=== PATIENT | female | born 1965 | race Caucasian/White ===

== ENCOUNTER 2017-02-08 20:15 | Emergency (ER) | payer OTHER ==
[~2017-02-08] VITALS: Ht 160 cm; Wt 62.7 kg
[~2017-02-08 20:15] MED LIST: ALBU8I INH; ALPR.25 PO; AMLO5 PO; ASPI81 PO; CEFU1TAB43 PO; DILT60TA PO; FLOV110A INH; PRED10 PO; TEMA15 PO; Z.0.OXYGENDME NC
[2017-02-08 20:18] VITALS: BP 171/75; PULSE 78; RESP 18; TEMP 97.8; O2SAT 92
--- NOTE | 2017-02-08 20:30 | PD ---
HPI Chief Complaint: ENT Complaint Time Seen by Provider: 20:30 Travel History International Travel<30 days: No Contact w/Intl Traveler<30days: No Traveled to known affect area: No History of Present Illness HPI 51 YO F presents to the ED for evaluation of 7 out of 10 left ear pain. Gradual onset since this morning. Patient endorses left-sided nasal congestion that has developed during the course of the day. She denies headaches, fevers, rhinorrhea, sore throat, cough, nausea or vomiting. She treated at home with a 400 mg ibuprofen and by rubbing Vicks VapoRub around her ear with no improvement in symptoms. NKDA. PFSH Past Medical History Arthritis: Yes (Severe in right hand and left knee) Asthma: Yes Autoimmune Disease: No Anxiety: Yes (Occurs with stress, does not take any medication) Depression: Yes Heart Rhythm Problems: No Cancer: No Cardiovascular Problems: Yes (HX of A Fib, HTN) High Cholesterol: Yes Chest Pain: Yes (New onset r/t current issue) Congestive Heart Failure: No COPD: Yes Cerebrovascular Accident: Yes (2012, caused temporary left sided weakness) Coronary Artery Disease: No Diabetes: No Diminished Hearing: No Endocrine: No GERD: No Genitourinary: No Hiatal Hernia: No Hypertension: Yes Immune Disorder: No Kidney Stones: No Musculoskeletal: Yes Neurologic: Yes Psychiatric: Yes Reproductive: No Respiratory: Yes (COPD, asthma) Migraines: No Pneumonia: Yes Renal Failure: No Seizures: No Sickle Cell Disease: No Sleep Apnea: No (Patient does not know) Thyroid Disease: No Ulcer: No Menopausal: Yes : 4 Para: 4 Past Surgical History Abdominal Surgery: No AICD: No Arteriovenous Shunt: No Body Medical Devices: Plate and screws in left tibia Cardiac Surgery: No Ear Surgery: No Endocrine Surgery: No Eye Surgery: No Genitourinary Surgery: No Gynecologic Surgery: Yes (Laser for cervial dysplasia) Insulin Pump: No Joint Replacement: No Oral Surgery: No Pacemaker: No Thoracic Surgery: Yes (Lobe of left lung removed d/t emphysema) Other Surgery: Yes (right partial lobectomy) Social History Alcohol Use: Yes (OCCASIONAL MALT LIQUOR) Tobacco Use: No Substance Use: No Allergies-Medications (Allergen,Severity, Reaction): Coded Allergies: No Known Allergies (Verified , 02/08/17) Reported Meds & Prescriptions Reported Meds & Active Scripts Active Amoxicillin 500 Mg Cap 500 Mg PO BID 7 Days Reported Nicoderm CQ Patch (Nicotine) 14 Mg/24 Hr Patch 14 Mg T-DERMAL DAILY Nitrostat SL (Nitroglycerin) 0.4 Mg Subl 0.4 Mg SL DIRECTED PRN 1 tablet under the tongue as needed for chest pain. Repeat every 5 minutes for a total of 3 DOSES or call 911 if NO relief. Buspirone (Buspirone HCl) 7.5 Mg Tab 7.5 Mg PO BID Proair Hfa 8.5 GM Inh (Albuterol Sulfate) 90 Mcg/Act Aer 1 Puff INH Q4H PRN 108 mcg/actuation Lipitor (Atorvastatin Calcium) 80 Mg Tab 80 Mg PO HS Losartan (Losartan Potassium) 50 Mg Tab 50 Mg PO DAILY Bupropion HCl 75 Mg Tab 75 Mg PO BID Amlodipine (Amlodipine Besylate) 5 Mg Tab 5 Mg PO DAILY Review of Systems Except as stated in HPI: all other systems reviewed are Neg Physical Exam Narrative GENERAL: Well-nourished, well-developed nontoxic appearing white female in no acute distress. SKIN: Warm and dry. HEAD: Normocephalic. Atraumatic. EYES: No scleral icterus. No injection or drainage. PERRLA. EOMI. ENT: Right tympanic membrane pearly yates. Left tympanic membrane erythematous. No loss of landmarks. Nasal mucosa is moist. Oropharynx without erythema, edema or exudate. NECK: Supple, trachea midline. No JVD or lymphadenopathy. CARDIOVASCULAR: Regular rate and rhythm without murmurs, gallops, or rubs. RESPIRATORY: Breath sounds clear and equal bilaterally. No accessory muscle use. GASTROINTESTINAL: Abdomen soft, non-tender, nondistended. + Bowel sounds MUSCULOSKELETAL: No cyanosis, or edema. Moves all extremities spontaneously. BACK: Nontender without obvious deformity. No CVA tenderness. Data Data Last Documented VS Vital Signs Date Time Temp Pulse Resp B/P (MAP) Pulse Ox O2 Delivery O2 Flow Rate FiO2 02/08/17 20:18 97.8 78 18 171/75 (107) 92 Orders Orders Amoxicillin (Trimox) (02/08/17 20:45) Tramadol (Ultram) (02/08/17 20:45) MDM Medical Decision Making Medical Screen Exam Complete: Yes Emergency Medical Condition: Yes Differential Diagnosis Otitis externa versus otitis media versus foreign body versus other Narrative Course 51 YO F presents to the ED for evaluation of 10 left ear pain. Gradual onset since this morning. Patient endorses left-sided nasal congestion that has developed during the course of the day. She denies headaches, fevers, rhinorrhea, sore throat, cough, nausea or vomiting. Vitals reviewed. Physical exam consistent with left otitis media. Patient is prescribed amoxicillin 500 mg twice a day 7 days. First dose administered in the ED. Patient was also administered a single dose of tramadol. She is encouraged to take the antibiotics as prescribed, use OTC medications as needed for pain, follow-up with the primary care or ENT specialist. The patient is agreeable to the care plan. She is stable and discharged home. Diagnosis Primary Impression: Otitis media Qualified Codes: H65.192 - Other acute nonsuppurative otitis media, left ear Referrals: Ear / Nose / Throat Specialist Patient Instructions: Ear Infection (ED), General Instructions Additional Instructions: Rest, hydrate. Take all antibiotics as prescribed, even if symptoms resolve. Take 600 mg ibuprofen up to 3 times a day as needed for continued pain. Follow-up with rn oncology research. Return to the ED for any urgent or emergent medical condition. Med/Other Pt SpecificInfo: Prescription(s) given Scripts Amoxicillin (Amoxicillin) 500 Mg Cap 500 MG PO BID for Infection for 7 Days, CAP 0 Refills Prov: Gopal Schneider MD 02/08/17 Disposition: 01 DISCHARGE HOME Condition: Stable Ryann Mcmanus Feb 08, 2017 20:30
[2017-02-08] MEDS ORDERED: LOSA25TA PO (20:31)
[2017-02-08] MEDS ORDERED: NITR0.4S SL (20:33)
[2017-02-08] MEDS ORDERED: AMLO5TAB2 PO (20:33)
[2017-02-08] MEDS ORDERED: NICO14DI4 T-DERMAL (20:33)
[2017-02-08] MEDS ORDERED: BUPR75TA PO (20:33)
[2017-02-08] MEDS ORDERED: LOSA50TA PO (20:33)
[2017-02-08] MEDS ORDERED: ALBUAER3 INH (20:33)
[2017-02-08] MEDS ORDERED: BUSP1TAB PO (20:33)
[2017-02-08] MEDS ORDERED: LIPI80TA PO (20:33)
[2017-02-08] MEDS ORDERED: AMOX500C PO (20:39)
[2017-02-08] MEDS ORDERED: AMOXICILLIN (TRIHYDRATE) 500 MG CAP PO ONE (20:45)
[2017-02-08] MEDS ORDERED: traMADol HCL 50 MG TAB PO ONE (20:45)
== END 2017-02-08 21:13 | disposition home or self-care (01) ==
LOC: PHEFT 20:15
DX: H65.192 Other acute nonsuppurative otitis media, left ear (principal); R09.81 Nasal congestion; I10 Essential (primary) hypertension; E78.00 Pure hypercholesterolemia, unspecified; Z87.39 Personal history of other diseases of the musculoskeletal system and connective tissue; Z87.09 Personal history of other diseases of the respiratory system; Z86.59 Personal history of other mental and behavioral disorders; Z86.79 Personal history of other diseases of the circulatory system; Z86.69 Personal history of other diseases of the nervous system and sense organs
CPT/HCPCS: 99283

== ENCOUNTER 2018-03-03 15:19 | Inpatient (IN) ==
[2018-03-03] MEDS ORDERED: MethylPREDNISolone Sod Succinate Inj 125 MG/2 ML Vial IV.PUSH ONE (15:34)
--- NOTE | 2018-03-03 15:43 | ED ---
HPI General Chief Complaint: Shortness of Breath/Dyspnea Stated Complaint: SOB History of Present Illness The patient was seen and examined in the presence of the nurse. She complains of shortness of breath. She has COPD and still smokes. She uses oxygen as needed at home. She has a dry cough. She feels like there is a pressure in her weight on her chest. Symptom severity is moderate. No alleviating factors. Symptoms exacerbated by her continued smoking. Duration 2 days Related Data Home Medications Medication Instructions Recorded Confirmed amlodipine 5 mg PO DAILY 03/03/18 03/03/18 buspirone 7.5 mg PO BID 03/03/18 03/03/18 doxycycline hyclate 1 cap PO Q12HR 03/03/18 03/03/18 losartan 1 tab PO DAILY 03/03/18 03/03/18 Allergies Allergy/AdvReac Type Severity Reaction Status Date / Time No Known Allergies Allergy Unverified 03/03/18 15:42 Review of Systems ROS: all other systems reviewed are negative [facility] Medical History Medical History Asthma (Acute) Atrial fibrillation (Acute) COPD (chronic obstructive pulmonary disease) (Acute) Cervical dysplasia (Acute) Fracture of tibia or fibula following insertion of orthopedic implant, joint prosthesis, or bone plate, left leg (Acute) Social History Social History Substance History: No History of Abuse Second Hand Smoke Exposure: No Smoking Status: Current every day smoker Tobacco Type: Cigarettes How Often Do You Have a Drink Containing Alcohol: 2 to 4 times a month Recent Travel in [facility] within the Last 8 Weeks: No Recent Out of Country Travel within the Last 8 Weeks: No Exam Narrative Exam Narrative: GENERAL: Well-nourished, well-developed patient with dyspnea . SKIN: Focused skin assessment reveals no rash and nodules. Skin is Warm and dry. HEAD: Atraumatic. Normocephalic. EYES: Pupils equal and round. No scleral icterus. No injection or drainage. ENT: No nasal bleeding or discharge. Mucous membranes pink and moist. NECK: Trachea midline. No JVD. CARDIOVASCULAR: Regular rate and rhythm. No murmur appreciated. RESPIRATORY: No accessory muscle use. Clear to auscultation. Breath sounds equal bilaterally. GASTROINTESTINAL: Abdomen soft, non-tender, nondistended. Hepatic and splenic margins not palpable. MUSCULOSKELETAL: No obvious deformities. No clubbing. No cyanosis. No edema. NEUROLOGICAL: Awake and alert. No obvious cranial nerve deficits. Motor grossly within normal limits. Normal speech. PSYCHIATRIC: Appropriate mood and affect; insight and judgment poor . Course Initial Documented Vital Signs Temperature 97.8 F 03/03/18 15:19 Pulse Rate 76 03/03/18 15:19 Respiratory Rate 24 03/03/18 15:19 Blood Pressure 179/74 H 03/03/18 15:19 Pulse Oximetry 84 L 03/03/18 15:19 Last Documented Vital Signs Temperature 97.8 F 03/03/18 15:19 Pulse Rate 93 H 03/03/18 16:07 Respiratory Rate 20 03/03/18 16:07 Blood Pressure 160/68 H 03/03/18 16:07 Pulse Oximetry 98 03/03/18 16:07 Critical Care Time Critical Care Time: Yes Total Critical Care Time: 38 Attestation: Aggregate critical care time was 38 minutes. Time to perform other separately billable procedures was not included in the critical care time. My time did not include minutes spent treating any other patients simultaneously or on activities that did not directly contribute to the patient's treatment. The services I provided to this patient were to treat and/or prevent clinically significant deterioration that could result in: Cardiopulmonary arrest, hypoxemic brain injury, aspiration I provided critical care services requiring my management, as noted below: Chart data review, documentation time, medication orders and management, vital sign assessments/reviewing monitor data, ordering and reviewing lab tests, ordering and interpreting/reviewing x-rays and diagnostic studies, care of the patient and discussion of the patient with the admitting physicians. Medical Decision Making MDM Narrative Medical decision making narrative: Patient has acute hypoxic respiratory failure. Saturations are 86% on room air on arrival. I gave her a series. She is also having chest heaviness which we are evaluating. After resuscitation measures she is breathing better. Her saturations are now 94-95 % on 4 L nasal cannula. Patient wears oxygen at home as needed Chest x-ray shows no pneumonia. Lab studies are reviewed. Cardiac enzymes are negative. EKG does not show acute changes. Patient will be telemetry hospitalization for both her respiratory failure and COPD as well as to evaluation of her chest pain. I placed a call to the hospitalist to discuss. Medical Screen Exam Complete: Yes Emergency Medical Condition: Yes Medical Records Medical records reviewed: Yes I reviewed the patient's medical records. Lab Data Lab results reviewed: Yes I reviewed the patient's lab results. Lab results narrative: Cardiac enzymes are normal. Metabolic studies have some mild irregularities Result diagrams: 03/03/18 15:35 03/03/18 15:35 Lab Results 03/03/18 03/03/18 Range/Units 15:35 15:35 CBC w Diff Auto diff final WBC 12.8 H (4.0-11.0) th/mm3 RBC 5.06 (4.00-5.30) mil/mm3 Hgb 15.1 (11.6-15.3) gm/dL Hct 45.6 (35.0-46.0) % MCV 90.2 (80.0-100.0) fL MCH 29.8 (27.0-34.0) pg MCHC 33.0 (32.0-36.0) % RDW 14.7 (11.6-17.2) % Plt Count 422 (150-450) th/mm3 MPV 8.3 (7.0-11.0) fL Neut % (Auto) 79.6 H (16.0-70.0) % Lymph % (Auto) 12.4 (9.0-44.0) % Lyman % (Auto) 6.9 (0.0-8.0) % Eos % (Auto) 0.9 (0.0-4.0) % Baso % (Auto) 0.2 (0.0-2.0) % Neut # (Auto) 10.2 H (1.8-7.7) th/mm3 Lymph # (Auto) 1.6 (1.0-4.8) th/mm3 Lyman # (Auto) 0.9 (0.0-0.9) th/mm3 Eos # (Auto) 0.1 (0.0-0.4) th/mm3 Baso # (Auto) 0.0 (0.0-0.2) th/mm3 WBC Differential . Differential Comment . Sodium 142 (136-145) meq/L Potassium 4.1 (3.5-5.1) meq/L Chloride 99 (98-107) meq/L Carbon Dioxide 38.4 H (21.0-32.0) meq/L Anion Gap 5 (5-15) meq/L BUN 12 (7-18) mg/dL Creatinine 0.42 L (0.50-1.00) mg/dL Estimated GFR Greater than 89 (>89) mL/min Random Glucose 121 H (74-106) mg/dL Calcium 8.8 (8.5-10.1) mg/dL Total Bilirubin 0.3 (0.2-1.0) mg/dL AST 14 L (15-37) U/L ALT 25 (10-53) U/L Alkaline Phosphatase 93 (45-117) U/L Total Creatine Kinase 62 (26-192) U/L Troponin I Less than 0.02 L (0.02-0.05) ng/mL Total Protein 7.3 (6.4-8.2) g/dL Albumin 3.5 (3.4-5.0) g/dL Imaging Data Attestation: I personally reviewed and interpreted this imaging study as follows : My impression: Chest x-ray does not show any consolidation or pneumonia Radiologist's impression: Chest X-Ray 03/03/18 15:34 CONCLUSION: 1. No acute pneumonia or significant interval change. ECG Data EKG Prior to Arrival: No Attestation: I personally reviewed and interpreted this ECG as follows: Prior ECG tracings: not available for review Interpretation: Patient is in a sinus rhythm. There are no acute ST elevations. [place] interval and rate are normal Discharge Plan Discharge Disposition Patient Disposition: 30 Still Patient Discharge Details Diagnosis: Acute respiratory failure with hypoxia, Chest pain in adult Physicians Team ED Provider: Miguel Quezada Primary Care Provider: UNKNOWN, Rxs /Orders / Referrals /Forms Prescriptions: No Action losartan 50 mg Tablet 1 tab PO DAILY RF: 0 doxycycline hyclate 100 mg Capsule 1 cap PO Q12HR RF: 0 amlodipine 5 mg Tablet 5 mg PO DAILY RF: 0 buspirone 7.5 mg Tablet 7.5 mg PO BID RF: 0 Discharge Interventions Interventions: Vital Signs Last Done: 03/03/18 16:07 Status ED Status: With Nurse
[2018-03-03 15:54] LABS: Baso % (Auto) 0.2 % (0.0-2.0); Eos # (Auto) 0.1 th/mm3 (0.0-0.4); Eos % (Auto) 0.9 % (0.0-4.0); Hematocrit 45.6 % (35.0-46.0); Hemoglobin 15.1 gm/dL (11.6-15.3); Lymph # (Auto) 1.6 th/mm3 (1.0-4.8); Lymph % (Auto) 12.4 % (9.0-44.0); Mean Corpuscular Hemoglobin 29.8 pg (27.0-34.0); Mean Corpuscular Volume 90.2 fL (80.0-100.0); Mean Platelet Volume 8.3 fL (7.0-11.0); Mono # (Auto) 0.9 th/mm3 (0.0-0.9); Mono % (Auto) 6.9 % (0.0-8.0); Neut # (Auto) 10.2 th/mm3 (1.8-7.7); Neut % (Auto) 79.6 % (16.0-70.0); Platelet Count 422 th/mm3 (150-450); Red Blood Count 5.06 mil/mm3 (4.00-5.30); Red Cell Distribution Width 14.7 % (11.6-17.2); White Blood Count 12.8 th/mm3 (4.0-11.0)
[2018-03-03 16:01] LABS: Chloride 99 meq/L (98-107); Potassium 4.1 meq/L (3.5-5.1); Sodium 142 meq/L (136-145)
[2018-03-03 16:04] LABS: Calcium 8.8 mg/dL (8.5-10.1)
[2018-03-03 16:05] LABS: Albumin 3.5 g/dL (3.4-5.0); Anion Gap 5 meq/L (5-15); Blood Urea Nitrogen 12 mg/dL (7-18); Carbon Dioxide 38.4 meq/L (21.0-32.0); Glucose,Random 121 mg/dL (74-106)
--- NOTE | 2018-03-03 16:05 | XR ---
EXAM DATE: 03/03/2018 3:34 PM EDT AGE/SEX: 52 years / Female INDICATIONS: Shortness of breath, difficulty breathing for 24 hours CLINICAL DATA: This is the patient's initial encounter. Patient reports that signs and symptoms have been present for 1 day and indicates a pain score of 0/10. MEDICAL/SURGICAL HISTORY: . Chronic obstructive pulmonary disease. Hypertension. asthma . Lef t lobectomy COMPARISON: [facility], XR CHEST PA AND LAT, 03/02/2017. . FINDINGS: No new focal pleural or parenchymal opacities. Persistent biapical scarring. The cardiomediastinal co ntours are unremarkable. Osseous structures are intact. CONCLUSION: 1. No acute pneumonia or significant interval change. Electronically signed by: Leandro Alcala MD 03/03/2018 4:03 PM EDT
[2018-03-03 16:08] LABS: Alanine Aminotransferase 25 U/L (10-53); Aspartate Aminotransferase 14 U/L (15-37); Glomerular Filtration Rate Greater Than 89 mL/min (>89)
[2018-03-03 16:10] LABS: Total Protein 7.3 g/dL (6.4-8.2)
[2018-03-03 16:11] LABS: Alkaline Phosphatase 93 U/L (45-117)
[2018-03-03 16:14] LABS: Creatine Kinase 62 U/L (26-192)
[2018-03-03] MEDS ORDERED: Bisacodyl 10 MG Supp RECTAL PRN (18:12)
[2018-03-03 19:23] LABS: Bilirubin,Urine Negative (Negative); Clarity,Urine Clear (Clear); Color,Urine Yellow (Yellw/Straw); Glucose,Urine (UA) Negative (Negative); Leukocyte Esterase,Urine Negative (Negative); Nitrite,Urine Negative (Negative); PH,Urine 6.5 (5.0-8.5); Urobilinogen,Urine 0.2 mg/dL (Less than 2)
[2018-03-03 19:35] LABS: Squamous Epithelial Cell,Urine 0-5 /hpf (0-5)
[2018-03-03] MEDS: Senna/Docusate Sodium 8.6/50 MG Tablet PO SCH (20:51)
[2018-03-03] MEDS: predniSONE 20 MG Tablet PO SCH (20:51)
[2018-03-03] MEDS: Enoxaparin Inj 40 MG/0.4 ML Syringe SQ SCH (20:51)
--- NOTE | 2018-03-03 21:31 | ECG ---
Date Performed: 03/03/2018 Time Performed: 15:44:39 PTAGE: 52 years EKG: Sinus rhythm WITH SINUS ARRHYTHMIA POSSIBLE RIGHT ATRIAL ENLARGEMENT POSSIBLE LEFT ATRIAL ENLARGEMENT BORDERLINE ECG Compared to prior electrocardiogram, rate has decreased PREVIOUS TRACING : 12/24/2015 13.26 DOCTOR: Pedro Montgomery Interpretating Date/Time 03/03/2018 21:29:35
[2018-03-04 07:30] LABS: Baso % (Auto) 0.2 % (0.0-2.0); Eos # (Auto) 0.1 th/mm3 (0.0-0.4); Eos % (Auto) 0.7 % (0.0-4.0); Hematocrit 45.8 % (35.0-46.0); Hemoglobin 15.2 gm/dL (11.6-15.3); Lymph # (Auto) 0.6 th/mm3 (1.0-4.8); Lymph % (Auto) 7.5 % (9.0-44.0); Mean Corpuscular HGB Conc 33.2 % (32.0-36.0); Mean Corpuscular Volume 90.4 fL (80.0-100.0); Mean Platelet Volume 8.2 fL (7.0-11.0); Mono # (Auto) 0.2 th/mm3 (0.0-0.9); Mono % (Auto) 2.9 % (0.0-8.0); Neut # (Auto) 6.7 th/mm3 (1.8-7.7); Neut % (Auto) 88.7 % (16.0-70.0); Platelet Count 389 th/mm3 (150-450); Red Blood Count 5.07 mil/mm3 (4.00-5.30); Red Cell Distribution Width 14.4 % (11.6-17.2); White Blood Count 7.6 th/mm3 (4.0-11.0)
[2018-03-04 07:34] LABS: Chloride 93 meq/L (98-107); Potassium 4.1 meq/L (3.5-5.1); Sodium 139 meq/L (136-145)
[2018-03-04 07:42] LABS: Albumin 3.4 g/dL (3.4-5.0); Anion Gap 5 meq/L (5-15); Carbon Dioxide 41.4 meq/L (21.0-32.0); Glucose,Random 120 mg/dL (74-106)
[2018-03-04 07:43] LABS: Blood Urea Nitrogen 17 mg/dL (7-18)
[2018-03-04 07:45] LABS: Aspartate Aminotransferase 12 U/L (15-37); Glomerular Filtration Rate Greater Than 89 mL/min (>89)
[2018-03-04 07:46] LABS: Alanine Aminotransferase 23 U/L (10-53)
[2018-03-04 07:47] LABS: Total Protein 7.2 g/dL (6.4-8.2)
[2018-03-04 07:48] LABS: Alkaline Phosphatase 94 U/L (45-117)
[2018-03-04] MEDS: amLODIPine 5 MG Tablet PO SCH (08:43)
[2018-03-04] MEDS: predniSONE 20 MG Tablet PO SCH ×2 (08:44→22:23)
[2018-03-04] MEDS: Senna/Docusate Sodium 8.6/50 MG Tablet PO SCH ×2 (08:44→22:25)
--- NOTE | 2018-03-04 11:27 | P.HPIM ---
History of Present Illness Primary Care Physician: UNKNOWN History of Present Illness: Mrs. Egan is a 52-year-old female. She has a past history of smoking and continues to smoke. She reports that she was exposed to a daughter and granddaughter the head and upper respiratory tract infection. She subsequently has developed coughing and rhinorrhea. For the past 2-3 days she has had a progressive worsening of her baseline respiratory status. Baseline is occasional use of home oxygen condenser at home. She try to use her condenser but the machine is currently not working, breathing became worse. She came into the emergency department. Hypoxia is present at time of arrival but with oxygen patient returned to satisfactory oxygen saturation levels. Overnight she was requiring 6 L of oxygen but has been weaned down to 3 L right now. No fevers. No other complaints. No chest pain. - Diagnosis (1) COPD exacerbation (2) Hypoxia (3) Acute respiratory failure with hypoxia Inpatient Certification: I certify that the inpatient services were ordered in accordance with Medicare regulations governing the order. This includes certification that hospital inpatient services are reasonable and necessary and in the case of services not specified as inpatient-only under 42 CFR 419.22(n), that they are appropriately provided as inpatient services in accordance to with the 2-midnight benchmark under 43 CFR 412.3(e) Estimated Total Length of Stay (Days): 3 Plans for Post Hospital Care: Home Review of Systems Constitutional: No fevers, no chills no night sweats, no fatigue, no weakness Eyes: No eye pain, no blurry vision, no loss of vision ENT: No sore throat, no ear pain, no rhinorrhea Cardiovascular: No chest pain, no tachycardia, no palpitations, no shortness of breath, no syncope Respiratory: wheezing, cough, shortness of breath Gastrointestinal: No abdominal pain, no black tarry stools, no bright red blood per rectum, no vomiting, no diarrhea Musculoskeletal: No joint pain, no muscle cramps, no stiffness Integumentary: No rash, no ulcers, no drainage Neurologic: No sensory loss, no loss of motor function, no dizziness Psychiatric: No behavioral changes, no hallucinations, no suicidal ideations [facility] - History History Provided By: Patient - Medical History Medical History: Medical History (Last Updated 03/03/18 @ 15:39 by Piedad Hull RN) Asthma Atrial fibrillation COPD (chronic obstructive pulmonary disease) Cervical dysplasia Fracture of tibia or fibula following insertion of orthopedic implant, joint prosthesis, or bone plate, left leg - Family History Family History: Family History (Last Updated 03/04/18 @ 11:23 by Nima Wu MD) Other Osteoarthritis - Tobacco History Second Hand Smoke Exposure: Yes Tobacco Use In Past 30 Days: Yes Smoking Status: Current every day smoker Tobacco Type: Cigarettes - Alcohol History How Often Do You Have a Drink Containing Alcohol: 2 to 4 times a month - Substance Use History Substance History: No History of Abuse - Travel History Recent Travel in the [place] Within the Last 8 Weeks: No Recent Travel Out of the Country Within the Last 8 Weeks: No - Immunization History Tetanus Immunization: >5 Years Hx Influenza Vaccine This Season: No Medications and Allergies Active Medications: Active Medications Hydrocodone Bitart/Acetaminophen ([place] 10/325) 1 tab PO Q4H PRN PRN Reason: Pain 7 to 10 Hydrocodone Bitart/Acetaminophen ([place] 5/325) 1 tab PO Q4H PRN PRN Reason: Pain 3 to 6 Last Admin: 03/04/18 06:34 Dose: 1 tab Al Hydroxide/Mg Hydroxide (Milk Of Magnesia Liq) 30 ml PO Q12H PRN PRN Reason: Mild Constipation Albuterol (Albuterol Neb (Prn)) 2.5 mg NEB Q2HR NEB PRN PRN Reason: SHORTNESS OF BREATH Albuterol (Duoneb Neb (Jacquelyn)) 1 ampul NEB Q6HR WHILE AWAKE NEB JACQUELYN Last Admin: 03/04/18 07:39 Dose: 1 ampul Amlodipine Besylate (Norvasc) 5 mg PO DAILY [facility] Last Admin: 03/04/18 08:43 Dose: 5 mg Bisacodyl (Dulcolax Supp) 10 mg RECTAL DAILY PRN PRN Reason: SEVERE CONSITIPATION Buspirone HCl (Buspar) 7.5 mg PO BID [facility] Last Admin: 03/04/18 08:44 Dose: 7.5 mg Doxycycline Hyclate (Vibratab) 100 mg PO Q12HR [facility] Last Admin: 03/04/18 08:44 Dose: 100 mg Enoxaparin Sodium (Lovenox Inj) 40 mg SQ Q24H [facility] Last Admin: 03/03/18 20:51 Dose: 40 mg Lactulose (Lactulose Liq) 30 ml PO DAILY PRN PRN Reason: SEVERE CONSITIPATION Losartan Potassium (Cozaar) 50 mg PO DAILY [facility] Last Admin: 03/04/18 08:44 Dose: 50 mg Ondansetron HCl (Zofran Inj) 4 mg IV.PUSH Q6H PRN PRN Reason: NAUSEA OR VOMITING Prednisone (Deltasone) 40 mg PO BID [facility] Last Admin: 03/04/18 08:44 Dose: 40 mg Senna/Docusate Sodium (Miranda-Colace) 1 tab PO BID [facility] Last Admin: 03/04/18 08:44 Dose: 1 tab Sennosides (Senokot) 17.2 mg PO Q12H PRN PRN Reason: Moderate Constipation Sodium Chloride (Ns Flush) 2 ml IV.FLUSH BID [facility] Last Admin: 03/04/18 08:44 Dose: 2 ml Sodium Chloride (Ns Flush) 2 ml IV.FLUSH PRN PRN PRN Reason: FLUSH AFTER USING IV ACCESS Allergies Allergy/AdvReac Type Severity Reaction Status Date / Time No Known Allergies Allergy Unverified 03/03/18 15:42 Home Medications Medication Instructions Recorded Confirmed Type amlodipine 5 mg PO DAILY 03/03/18 03/03/18 History buspirone 7.5 mg PO BID 03/03/18 03/03/18 History doxycycline hyclate 1 cap PO Q12HR 03/03/18 03/03/18 History losartan 1 tab PO DAILY 03/03/18 03/03/18 History Exam Vital signs: Vital Signs 03/03/18 15:19 03/03/18 15:34 03/03/18 15:50 Temperature 97.8 F Pulse Rate 76 68 Respiratory Rate 24 Blood Pressure 179/74 H Pulse Oximetry 84 L 94 L 100 03/03/18 15:55 03/03/18 16:07 03/03/18 16:10 Temperature Pulse Rate 86 93 H 82 Respiratory Rate 20 20 20 Blood Pressure 160/68 H Pulse Oximetry 98 03/03/18 16:55 03/03/18 18:21 03/03/18 19:41 Temperature 98.2 F Pulse Rate 98 H 96 H 102 H Respiratory Rate 22 18 18 Blood Pressure 179/79 H Pulse Oximetry 98 95 95 03/03/18 20:00 03/04/18 00:00 03/04/18 04:00 Temperature 98.5 F 98.8 F 98.7 F Pulse Rate 63 77 85 Respiratory Rate 16 16 16 Blood Pressure 194/92 H 189/90 H 170/80 H Pulse Oximetry 93 L 94 L 95 03/04/18 07:42 03/04/18 08:00 Temperature 96.5 F L Pulse Rate 96 H Respiratory Rate Blood Pressure 126/60 Pulse Oximetry 98 95 Intake & Output 03/03/18 03/04/18 03/04/18 18:59 06:59 18:59 Output Total 450 / 450 Balance -450 / -450 Weight 62.2 kg 62.7 kg Output: Urine 450 / 450 Other: # Voids 1 Date of Last Bowel Movement 03/02/18 03/02/18 Weight On Admission 62.2 kg Narrative: GENERAL: NAD, A&Ox3, oxygen via nasal cannula in place HEAD: Normocephalic. NECK: Supple, trachea midline. No lymphadenopathy. EYES: No scleral icterus. No injection or drainage. CARDIOVASCULAR: Regular rate and rhythm without murmurs, gallops, or rubs. RESPIRATORY: Breath sounds equal bilaterally. No accessory muscle use. Bilateral wheezing. GASTROINTESTINAL: Abdomen soft, non-tender, nondistended. MUSCULOSKELETAL: No cyanosis, or edema. SKIN: Warm and dry. NEURO: No focal neurological deficits. Results - Labs CBC & Chem 7: 03/04/18 06:15 03/04/18 06:15 Labs: Short CBC 03/03/18 03/04/18 Range/Units 15:35 06:15 WBC 12.8 H 7.6 (4.0-11.0) th/mm3 Hgb 15.1 15.2 (11.6-15.3) gm/dL Hct 45.6 45.8 (35.0-46.0) % Plt Count 422 389 (150-450) th/mm3 BMP 03/03/18 03/04/18 15:35 06:15 Sodium 142 139 Potassium 4.1 4.1 Chloride 99 93 L Carbon Dioxide 38.4 H 41.4 H BUN 12 17 Creatinine 0.42 L 0.46 L Calcium 8.8 9.0 Cardiac Enzymes 03/03/18 Range/Units 15:35 Total Creatine Kinase 62 (26-192) U/L Troponin I Less than 0.02 L (0.02-0.05) ng/mL Liver Function 03/03/18 03/04/18 Range/Units 15:35 06:15 Total Bilirubin 0.3 0.4 (0.2-1.0) mg/dL AST 14 L 12 L (15-37) U/L ALT 25 23 (10-53) U/L Alkaline Phosphatase 93 94 (45-117) U/L Albumin 3.5 3.4 (3.4-5.0) g/dL Urine 03/03/18 Range/Units 18:40 Urine Color Yellow (Yellw/Straw) Urine Clarity Clear (Clear) Urine pH 6.5 (5.0-8.5) Ur Specific [place] 1.020 (1.002-1.035) Urine Protein 30 H (Neg-Trace) mg/dL Urine Glucose (UA) Negative (Negative) mg/dL - Imaging Impressions Chest X-Ray 03/03/18 15:34 CONCLUSION: 1. No acute pneumonia or significant interval change. Caprini VTE Risk Assessment Caprini VTE Risk Assessment: No/Low Risk (score <= 1) Caprini Risk Assessment Model: Point Value = 1 Point Value = 2 Point Value = 3 Point Value = 5 Age 41-60 Minor surgery BMI > 25 kg/m2 Swollen legs Varicose veins or History of unexplained or recurrent spontaneous Oral contraceptives or hormone replacement Sepsis (< 1 month) Serious lung disease, including pneumonia (< 1 month) Abnormal pulmonary function Acute myocardial infarction Congestive heart failure (< 1 month) History of inflammatory bowel disease Medical patient at bed rest Age 61-74 Arthroscopic surgery Major open surgery (> 45 min) Laparoscopic surgery (> 45 min) Malignancy Confined to bed (> 72 hours) Immobilizing plaster cast Central venous access Age >= 75 History of VTE Family history of VTE Factor V Leiden Prothrombin [id number] Lupus anticoagulant Anticardiolipin antibodies Elevated serum homocysteine Heparin-induced thrombocytopenia Other congenital or acquired thrombophilia Stroke (< 1 month) Elective arthroplasty Hip, pelvis, or leg fracture Acute spinal cord injury (< 1 month) Prophylaxis Regimen: Total Risk Factor Score Risk Level Prophylaxis Regimen 0-1 Low Early ambulation 2 Moderate Order ONE of the following: *Sequential Compression Device (SCD) *Heparin 5000 units SQ BID 3-4 Higher Order ONE of the following medications: *Heparin 5000 units SQ TID *Enoxaparin/Lovenox 40 mg SQ daily (WT < 150 kg, CrCl > 30 mL/min) *Enoxaparin/Lovenox 30 mg SQ daily (WT < 150 kg, CrCl > 10-29 mL/min) *Enoxaparin/Lovenox 30 mg SQ BID (WT < 150 kg, CrCl > 30 mL/min) AND/OR *Sequential Compression Device (SCD) 5 or more Highest Order ONE of the following medications: *Heparin 5000 units SQ TID (Preferred with Epidurals) *Enoxaparin/Lovenox 40 mg SQ daily (WT < 150 kg, CrCl > 30 mL/min) *Enoxaparin/Lovenox 30 mg SQ daily (WT < 150 kg, CrCl > 10-29 mL/min) *Enoxaparin/Lovenox 30 mg SQ BID (WT < 150 kg, CrCl > 30 mL/min) AND *Sequential Compression Device (SCD) Assessment and Plan - Assessment (1) COPD exacerbation Code(s): J44.1 - Chronic obstructive pulmonary disease with (acute) exacerbation Status: Acute (2) Hypoxia Code(s): R09.02 - Hypoxemia Status: Acute (3) Acute respiratory failure with hypoxia Code(s): J96.01 - Acute respiratory failure with hypoxia Status: Acute - Plan 52-year-old female admitted secondary to COPD exacerbation with hypoxia Hypoxia Acute respiratory failure COPD exacerbation Continue oxygen supplements as needed Schedule duo nebs When necessary albuterol Azithromycin Systemic steroids Follow for improvement in respiratory status Follow for improvement in exertional tolerance next History of atrial fibrillation No change to baseline treatment Follow clinically DVT prophylaxis Lovenox H&P: Quality - VTE Deep Vein Thrombosis/Pulmonary Embolism Present on Admission: No
[2018-03-04] MEDS: Butalbital/APAP/Caff 50/325/40 MG Tablet PO PRN ×2 (13:47→20:48)
[2018-03-04] MEDS: Enoxaparin Inj 40 MG/0.4 ML Syringe SQ SCH (22:22)
[2018-03-05] MEDS: Butalbital/APAP/Caff 50/325/40 MG Tablet PO PRN (07:51)
[2018-03-05] MEDS: amLODIPine 5 MG Tablet PO SCH (07:59)
[2018-03-05] MEDS: Senna/Docusate Sodium 8.6/50 MG Tablet PO SCH ×2 (07:59→21:16)
[2018-03-05] MEDS: predniSONE 20 MG Tablet PO SCH ×2 (07:59→21:16)
--- NOTE | 2018-03-05 11:35 | P.PNIM ---
Subjective Interval history: Slight improvement in respiratory status compared to yesterday. Patient remains oxygen dependent. She is currently on 3 L nasal cannula. Complaint of cough. Physical Exam Vital signs: Vital Signs 03/04/18 12:00 03/04/18 16:00 03/04/18 19:20 Temperature 98.6 F 98.3 F Pulse Rate 98 H 95 H 128 H Respiratory Rate 18 18 20 Blood Pressure 142/71 H 124/61 Pulse Oximetry 95 94 L 03/04/18 19:21 03/04/18 20:00 03/04/18 20:33 Temperature 98.2 F Pulse Rate 102 H 129 H Respiratory Rate 20 Blood Pressure 138/69 Pulse Oximetry 98 95 03/05/18 00:00 03/05/18 04:00 03/05/18 07:43 Temperature 98.2 F 98.2 F Pulse Rate 86 86 Respiratory Rate 20 20 Blood Pressure 129/67 144/71 H Pulse Oximetry 99 96 97 03/05/18 08:00 Temperature 97.7 F Pulse Rate 80 Respiratory Rate 18 Blood Pressure 153/76 H Pulse Oximetry 96 Intake & Output 03/04/18 03/05/18 03/05/18 18:59 06:59 18:59 Intake Total 240 / 240 720 / 720 Balance 240 / 240 720 / 720 Weight 62.4 kg Intake: Oral 240 / 240 720 / 720 Other: # Voids 3 4 Date of Last Bowel Movement 03/02/18 Narrative: GENERAL: NAD, A&Ox3, oxygen via nasal cannula in place HEAD: Normocephalic. NECK: Supple, trachea midline. No lymphadenopathy. EYES: No scleral icterus. No injection or drainage. CARDIOVASCULAR: Regular rate and rhythm without murmurs, gallops, or rubs. RESPIRATORY: Breath sounds equal bilaterally. No accessory muscle use. Bilateral wheezing (improving). GASTROINTESTINAL: Abdomen soft, non-tender, nondistended. MUSCULOSKELETAL: No cyanosis, or edema. SKIN: Warm and dry. NEURO: No focal neurological deficits. Results - Labs CBC & Chem 7: 03/04/18 06:15 03/04/18 06:15 Assessment and Plan - Assessment (1) COPD exacerbation Code(s): J44.1 - Chronic obstructive pulmonary disease with (acute) exacerbation Status: Acute (2) Hypoxia Code(s): R09.02 - Hypoxemia Status: Acute (3) Acute respiratory failure with hypoxia Code(s): J96.01 - Acute respiratory failure with hypoxia Status: Acute - Plan 52-year-old female admitted secondary to COPD exacerbation with hypoxia Hypoxia Acute respiratory failure COPD exacerbation Improving slowly Continue oxygen supplements as needed Schedule duo nebs When necessary albuterol Azithromycin Systemic steroids Robitussin for cough Follow for improvement in respiratory status Follow for improvement in exertional tolerance next History of atrial fibrillation No change to baseline treatment Follow clinically DVT prophylaxis Lovenox
[2018-03-05] MEDS: Enoxaparin Inj 40 MG/0.4 ML Syringe SQ SCH (21:16)
[2018-03-06] MEDS: amLODIPine 5 MG Tablet PO SCH (08:28)
[2018-03-06] MEDS: predniSONE 20 MG Tablet PO SCH ×2 (08:28→21:20)
[2018-03-06] MEDS: Senna/Docusate Sodium 8.6/50 MG Tablet PO SCH ×2 (08:29→21:20)
--- NOTE | 2018-03-06 08:31 | US ---
EXAM DATE: 03/06/2018 12:00 AM EDT AGE/SEX: 52 years / Female INDICATIONS: Weakness. CLINICAL DATA: This is the patient's initial encounter. Patient reports that signs and symptoms have been present for 1 day and indicates a pain score of 0/10. MEDICAL/SURGICAL HISTORY: Asthma. Chronic obstructive pulmonary disease. Cervical dysplasia. F racture of tibia/Fibula. . Orthopedic implant. COMPARISON: No prior exams available for comparison. VELOCITY PARAMETERS: ICA/CCA Ratio: Right 1.3 , Left 2.2 ICA: Right 138 cm/sec, Left 227 cm/sec CCA: Right 108 cm/sec, Left 102 cm/sec ECA: Right 65 cm/sec, Left 45 cm/sec Vertebral: Right 46 cm/sec antegrade, Left 96 cm/sec antegrade FINDINGS: Right Carotid: Mild arteriosclerotic plaque is visualized.The waveforms are within normal limits. Left Carotid: Moderate arteriosclerotic plaque is visualized. The waveforms are within normal limits . Other: None. CONCLUSION: Moderate atherosclerotic plaque on the left with elevated ratios and velocities borderline significan t. CT angiography may be of benefit. Electronically signed by: Ej Burciaga MD 03/06/2018 8:29 AM EDT
[2018-03-06] MEDS ORDERED: Gadobutrol PF 7.5 MMOL/7.5 ML Vial (for RAD) IV.SIG ONE (10:50)
--- NOTE | 2018-03-06 11:30 | MR ---
EXAM DATE: 03/06/2018 12:00 AM EDT AGE/SEX: 52 years / Female INDICATIONS: . Diplopia. CLINICAL DATA: This is the patient's subsequent encounter. Patient reports that signs and symptoms h ave been present for 3 days and indicates a pain score of 0/10. MEDICAL/SURGICAL HISTORY: Chronic obstructive pulmonary disease. Hypertension. Lobectomy. Left tibia repair. COMPARISON: [facility], MRA HEAD W/O CONTRAST, 03/06/2018. [facility], CT SINUSES W/O CONTRAST, 10/17/2015. . TECHNIQUE: Multiplanar, multisequence examination of the brain was performed without and with 6 ml Ga davist (gadobutrol) contrast as a single exam dose. FINDINGS: Cerebrum: The ventricles are normal for age. No evidence of midline shift, mass lesion, hemorrhage or acute infarction. No extraaxial fluid collections are seen. The pituitary gland and suprasellar cistern are normal in configuration. White Matter: Minimal periventricular and subcortical white matter signal abnormalities are noted co nsistent with minimal demyelination or small vessel ischemic disease. Posterior Fossa: The cerebellum and brainstem are intact. The 4th ventricle is midline. The cerebel lopontine angle is unremarkable. The cerebellar tonsils are normal in position. Diffusion Imaging: No focal areas of restricted diffusion are seen. No evidence of acute infarction . Extracranial: The visualized portions of the orbits and paranasal sinuses are unremarkable. Post Contrast: No abnormal areas of parenchymal or dural enhancement. No evidence of blood-brain ba rrier breakdown. CONCLUSION: 1. Minimal periventricular and subcortical white matter signal abnormalities suggesting minimal demy elination or small vessel ischemic changes. 2. No acute infarct, acute hemorrhage, midline shift or extra-axial fluid collections. Electronically signed by: Omari Brown MD 03/06/2018 11:28 AM EDT
--- NOTE | 2018-03-06 11:32 | MR ---
EXAM DATE: 03/06/2018 10:21 AM EDT AGE/SEX: 52 years / Female INDICATIONS: . Diplopia. CLINICAL DATA: This is the patient's subsequent encounter. Patient reports that signs and symptoms h ave been present for 3 days and indicates a pain score of 0/10. MEDICAL/SURGICAL HISTORY: Chronic obstructive pulmonary disease. Hypertension. Lobectomy. Left tibia repair. COMPARISON: No prior exams available for comparison. TECHNIQUE: 3D [id number] MRA was performed. Source images, multiplanar STS MIP, and 3D volum e MIP reconstructions were reviewed. FINDINGS: There is excellent visualization of the major intracranial arteries out to the second-order branch ve ssels. Atherosclerotic plaque involving the intracavernous ICAs bilaterally without a hemodynamically significant stenosis. There is no evidence for aneurysm, vessel truncation or stenosis, and no evide nce for vascular malformation. CONCLUSION: 1. No acute abnormality. Electronically signed by: Omar Alves MD 03/06/2018 11:31 AM EDT
--- NOTE | 2018-03-06 12:51 | P.PNIM ---
Subjective Interval history: No new complaints today. Patient remains oxygen dependent. Carotid ultrasound , MRI, MRA are negative. Physical Exam Vital signs: Vital Signs 03/05/18 16:00 03/05/18 19:08 03/05/18 20:00 Temperature 98.4 F 98.6 F Pulse Rate 93 H 94 H 92 H Respiratory Rate 18 18 16 Blood Pressure 132/62 133/67 Pulse Oximetry 95 96 93 L 03/05/18 20:15 03/06/18 00:00 03/06/18 04:00 Temperature 98.4 F 98.4 F Pulse Rate 88 78 75 Respiratory Rate 16 16 Blood Pressure 137/63 136/60 Pulse Oximetry 94 L 95 03/06/18 07:19 03/06/18 08:00 Temperature 96.6 F L Pulse Rate 90 79 Respiratory Rate 20 20 Blood Pressure 147/67 H Pulse Oximetry 93 L 94 L Intake & Output 03/05/18 03/06/18 03/06/18 18:59 06:59 18:59 Intake Total 400 / 400 Output Total 400 / 400 Balance 400 / 400 -400 / -400 Weight 62.4 kg Intake: Oral 400 / 400 Output: Urine 400 / 400 Other: Date of Last Bowel Movement 03/02/18 03/03/18 Narrative: GENERAL: NAD, A&Ox3, oxygen via nasal cannula in place HEAD: Normocephalic. NECK: Supple, trachea midline. No lymphadenopathy. EYES: No scleral icterus. No injection or drainage. CARDIOVASCULAR: Regular rate and rhythm without murmurs, gallops, or rubs. RESPIRATORY: Breath sounds equal bilaterally. No accessory muscle use. Bilateral wheezing (improving). GASTROINTESTINAL: Abdomen soft, non-tender, nondistended. MUSCULOSKELETAL: No cyanosis, or edema. SKIN: Warm and dry. NEURO: No focal neurological deficits. Results - Labs CBC & Chem 7: 03/04/18 06:15 03/04/18 06:15 - Imaging Impressions Carotid Doppler Study 03/06/18 00:00 CONCLUSION: Moderate atherosclerotic plaque on the left with elevated ratios and velocities borderline significant. CT angiography may be of benefit. Head MRI 03/06/18 00:00 CONCLUSION: 1. Minimal periventricular and subcortical white matter signal abnormalities suggesting minimal demyelination or small vessel ischemic changes. 2. No acute infarct, acute hemorrhage, midline shift or extra-axial fluid collections. Head MRA 03/06/18 00:00 CONCLUSION: 1. No acute abnormality. Assessment and Plan - Assessment (1) COPD exacerbation Code(s): J44.1 - Chronic obstructive pulmonary disease with (acute) exacerbation Status: Acute (2) Hypoxia Code(s): R09.02 - Status: Acute (3) Acute respiratory failure with hypoxia Code(s): J96.01 - Acute respiratory failure with hypoxia Status: Acute - Plan 52-year-old female admitted secondary to COPD exacerbation with hypoxia Screening for neurological changes is negative including MRA of the brain, MRI of the head, and carotid ultrasound. Remains oxygen dependent. She will need to be off oxygen or have repair of her home oxygen prior to discharge. Hypoxia Acute respiratory failure COPD exacerbation Improving slowly Continue oxygen supplements as needed Schedule duo nebs When necessary albuterol Azithromycin Systemic steroids Robitussin for cough Follow for improvement in respiratory status Follow for improvement in exertional tolerance next History of atrial fibrillation No change to baseline treatment Follow clinically DVT prophylaxis Lovenox
[2018-03-06] MEDS: Enoxaparin Inj 40 MG/0.4 ML Syringe SQ SCH (21:19)
[2018-03-07 01:43] VITALS: TEMP 97.2
[2018-03-07 07:08] VITALS: RESP 18
[2018-03-07] MEDS: Butalbital/APAP/Caff 50/325/40 MG Tablet PO PRN (07:26)
[2018-03-07 08:56] VITALS: BP 138/80; PULSE 79; O2SAT 95
[2018-03-07] MEDS: predniSONE 20 MG Tablet PO SCH (08:57)
[2018-03-07] MEDS: amLODIPine 5 MG Tablet PO SCH (08:57)
[2018-03-07] MEDS: Senna/Docusate Sodium 8.6/50 MG Tablet PO SCH (08:58)
--- NOTE | 2018-03-07 09:48 | P.DS ---
Date of admission: 03/03/18 16:26 Primary care physician: UNKNOWN Brief History from admission: Mrs. Egan is a 52-year-old female. She has a past history of smoking and continues to smoke. She reports that she was exposed to a daughter and granddaughter the head and upper respiratory tract infection. She subsequently has developed coughing and rhinorrhea. For the past 2-3 days she has had a progressive worsening of her baseline respiratory status. Baseline is occasional use of home oxygen condenser at home. She try to use her condenser but the machine is currently not working, breathing became worse. She came into the emergency department. Hypoxia is present at time of arrival but with oxygen patient returned to satisfactory oxygen saturation levels. Overnight she was requiring 6 L of oxygen but has been weaned down to 3 L right now. No fevers. No other complaints. No chest pain. DS: Diagnosis - Discharge Diagnosis (1) COPD exacerbation Status: Acute (2) Hypoxia Status: Acute (3) Acute respiratory failure with hypoxia Status: Acute DS: Medications - Discharge Medications Prescriptions: albuterol sulfate [Ventolin HFA] 2 puff INHALATION Q4-6H PRN #1 unit PRN Reason: Wheezing, Shortness of Breath [id number] 1 tab PO Q6H PRN #12 tab PRN Reason: Headache prednisone 5 mg PO DIRECTED #12 tab tiotropium bromide [Spiriva Respimat] 2 puff INHALATION DAILY #1 unit DS: Summary Hospital Course: Mrs. Chaudhary is a 52-year-old female. She was admitted secondary to acute hypoxic respiratory failure which was related to a COPD exacerbation of. Etiology for her exacerbation was a viral upper respiratory tract infection with exposure to her daughter and granddaughter. Patient was treated with steroids and oxygen supplementation. Through time she has returned close to her baseline. She has a pre-existing set up home oxygen at home and at this point has been weaned down to her baseline level. Medically stable and cleared for discharge home today. - Time Spent with Patient Total time spent providing and/or coordinating discharge services: Less than 30 minutes - Quality: VTE Deep Vein Thrombosis/Pulmonary Embolism Present on Admission: No Exam Vital signs: Vital Signs 03/06/18 12:00 03/06/18 13:46 03/06/18 16:00 Temperature 96.4 F L 97.6 F Pulse Rate 83 89 87 Respiratory Rate 20 16 20 Blood Pressure 138/72 138/69 Pulse Oximetry 93 L 94 L 03/06/18 19:21 03/06/18 20:00 03/07/18 00:00 Temperature 97.9 F 97.2 F L Pulse Rate 99 H 99 H 94 H Respiratory Rate 18 16 16 Blood Pressure 134/66 144/79 H Pulse Oximetry 96 92 L 94 L 03/07/18 07:07 03/07/18 08:00 03/07/18 08:55 Temperature Pulse Rate 81 73 79 Respiratory Rate 18 18 Blood Pressure 138/80 Pulse Oximetry 94 L 95 Intake & Output 03/06/18 03/07/18 03/07/18 18:59 06:59 18:59 Intake Total 241 / 241 Output Total 4 / 4 Balance 237 / 237 Intake: Oral 241 / 241 Output: Urine Other: Date of Last Bowel Movement 03/03/18 03/07/18 # Bowel Movements 1 Results Procedures completed during hospitalization: None - Impressions ITS Impressions Chest X-Ray 03/03/18 15:34 CONCLUSION: 1. No acute pneumonia or significant interval change. Carotid Doppler Study 03/06/18 00:00 CONCLUSION: Moderate atherosclerotic plaque on the left with elevated ratios and velocities borderline significant. CT angiography may be of benefit. Head MRI 03/06/18 00:00 CONCLUSION: 1. Minimal periventricular and subcortical white matter signal abnormalities suggesting minimal demyelination or small vessel ischemic changes. 2. No acute infarct, acute hemorrhage, midline shift or extra-axial fluid collections. Head MRA 03/06/18 00:00 CONCLUSION: 1. No acute abnormality. Discharge Plan - Discharge Disposition Patient Disposition: Discharge Home - Discharge Condition Condition: Stable - Discharge Order Discharge Orders: Discharge Order (Routine); Ordered 03/07/18 Ordered By: Nima Wu - Discharge Details Anticipated Discharge Date: 03/07/18 - Physicians Team Primary Care Provider: UNKNOWN, Attending Provider: Nima Wu
== END 2018-03-07 11:13 | disposition home or self-care (01) ==
LOC: PHED 15:19 → PHEDA 16:26 → PH3 17:05
PROVIDERS: ADMIT Hospitalist; ATTEND Hospitalist